=== PATIENT | male | born 1985 | race Hispanic/Latino ===

== ENCOUNTER 2023-05-27 17:51 | Emergency (ER) | payer OTHER ==
[2023-05-27 18:26] VITALS: BP 133/78; PULSE 110; RESP 20
[2023-05-27] MEDS ORDERED: ACETAMINOPHEN 500 MG TABLET PO ONE (21:00)
[2023-05-27 21:03] LABS: RAPID GROUP A STREP negative (NEGATIVE)
[2023-05-27 21:13] LABS: SARS-CoV-2, RNA, NAAT NEGATIVE SARS CoV-2 (NEGATIVE)
[2023-05-27 21:15] VITALS: TEMP 101.5
[2023-05-27 21:21] LABS: INFLUENZA TYPE A Negative For Type A (NEGATIVE); INFLUENZA TYPE B Negative For Type B (NEGATIVE)
[2023-05-27] MEDS ORDERED: IBUP-2070 PO (22:24)
== END 2023-05-27 22:35 | disposition home or self-care (01) ==
LOC: EDH 17:51
DX: J00 Acute nasopharyngitis [common cold] (principal); B34.9 Viral infection, unspecified; Z88.0 Allergy status to penicillin; Z20.822 Contact with and (suspected) exposure to COVID-19
CPT/HCPCS: 99283; 87635; 87880; 87804 ×2; C9803